=== PATIENT | female | born 1985 | race African-American/Black ===

== ENCOUNTER 2019-06-05 18:46 | Emergency (ER) | payer BC ==
[~2019-06-05] VITALS: Ht 154.9 cm; Wt 89.5 kg
[2019-06-05 19:43] VITALS: BP 131/75; TEMP 98.4
[2019-06-05 20:44] LABS: BASO # 0.1 (0.0-0.2); BASO % 0.9 % (0.0-2.0); EOS # 0.4 (0.0-0.7); EOS % 5.6 % (0-4.0); GRAN # 4.4 (1.4-6.5); GRAN % 56.7 % (42.2-75.2); HEMATOCRIT 41.1 % (37.0-47.0); HEMOGLOBIN 14.2 g/dl (12.5-16.0); LYMPH % 24.9 % (20.0-51.0); MEAN CELL VOLUME 82 fl (80.0-100.0); MEAN CORPUSCULAR HEMOGLOBIN 28 pg (27.0-31.0); MEAN CORPUSCULAR HGB CONC 35 g/dl (33.0-37.0); MEAN PLATELET VOLUME 9.8 fl (7.4-10.4); MONO # 0.9 (0.1-0.6); MONO % 11.5 % (1.7-9.3); PLATELET COUNT 291 K/mm3 (130-400); RED BLOOD COUNT 5.01 M/mm3 (4.10-5.30); REDCELL DISTRIBUTION WIDTH-CV 13.2 % (11.5-14.5)
[2019-06-05 21:03] LABS: COLLECTION METHOD CLEAN CATCH
[2019-06-05 21:18] LABS: MUCOUS Present /lpf; PH 6 (5-8); SQUAMOUS EPITHELIAL 0-2 /hpf; URINE APPEARANCE Hazy; URINE BACTERIA None Seen /hpf; URINE BILIRUBIN Negative (NEGATIVE); URINE BLOOD 3+ (NEGATIVE); URINE COLOR Yellow; URINE GLUCOSE Negative (NEGATIVE); URINE KETONE Negative (NEGATIVE); URINE LEUKOCYTE ESTERASE Negative (NEGATIVE); URINE NITRATE Negative (NEGATIVE); URINE PROTEIN(semi-quant) 1+ (NEGATIVE); URINE RBC >50 /hpf; URINE UROBILINOGEN Negative (NEGATIVE)
[2019-06-05 22:30] VITALS: PULSE 71
== END 2019-06-05 22:40 | disposition home or self-care (01) ==
LOC: COL.ER 18:46
PROVIDERS: Nurse Practitioner
DX: O46.91 Antepartum hemorrhage, unspecified, first trimester (principal); Z3A.10 10 weeks gestation of pregnancy

== ENCOUNTER → 2019-12-13 | Outpatient (CLI) | payer BC | LOC: ZCOL.LAB 08:00 | DX: Z20.828 Contact with and (suspected) exposure to other viral communicable diseases (principal) ==

== ENCOUNTER 2019-12-19 05:16 | Inpatient (IN) | payer BC ==
[2019-12-19] VITALS (19 sets, daily range): BP systolic 84–122; BP diastolic 7–84; PULSE 60–100; TEMP 97.8–98.4
[~2019-12-19] VITALS: Ht 154.9 cm; Wt 105.5 kg
--- NOTE | 2019-12-19 05:30 | NUR ---
0530- PT AMBULATORY TO THE UNIT WITH BY HER SIDE. ORIENTATED TO ROOM AND CHANGED INTO GOWN. REPORTS GFM, NO LOF, NO CTX, AND NO BLOOD. 0535- EFM AND TOCO ON AND TRACING. RN REMAINS AT BEDSIDE. EFM TRACING INTERMITTENTLY. 0540- EFM ADJUSTED AND TRACING NOW. VITALS TAKEN, IV STARTED, FLUIDS RUNNING, CONSENTS SIGNED. QUESTIONS ANSWERED. CALL LIGHT WITHIN REACH.
[2019-12-19 06:22] LABS: BASO % 0.6 % (0.0-2.0); EOS # 0.2 (0.0-0.7); EOS % 2.2 % (0-4.0); GRAN # 4.6 (1.4-6.5); GRAN % 66.8 % (42.2-75.2); HEMATOCRIT 37.4 % (37.0-47.0); HEMOGLOBIN 12.5 g/dl (12.5-16.0); LYMPH # 1.5 (1.2-3.4); LYMPH % 21.2 % (20.0-51.0); MEAN CELL VOLUME 77 fl (80.0-100.0); MEAN CORPUSCULAR HEMOGLOBIN 26 pg (27.0-31.0); MEAN CORPUSCULAR HGB CONC 33 g/dl (33.0-37.0); MEAN PLATELET VOLUME 10.7 fl (7.4-10.4); MONO # 0.6 (0.1-0.6); MONO % 8.8 % (1.7-9.3); PLATELET COUNT 235 K/mm3 (130-400); RED BLOOD COUNT 4.89 M/mm3 (4.10-5.30); REDCELL DISTRIBUTION WIDTH-CV 15.7 % (11.5-14.5)
[2019-12-19] MEDS ORDERED: PRENATAL (06:24)
[2019-12-20] VITALS: BP 110/60; PULSE 83; TEMP 98
[2019-12-20 04:30] VITALS: BP 105/67; PULSE 87; TEMP 98.2
[2019-12-20 06:53] LABS: HEMOGLOBIN 11.3 g/dl (12.5-16.0)
[2019-12-20 06:54] LABS: HEMATOCRIT 34.6 % (37.0-47.0)
--- NOTE | 2019-12-20 07:06 | NUR ---
Patient sleeping. Report received from off going RN, Summer Cortes
[2019-12-20] MEDS ORDERED: PERCOCET 325 MG1 TA2 PO (08:23)
[2019-12-20] MEDS ORDERED: IBU600 MG PO (08:23)
[2019-12-20 09:31] VITALS: BP 107/44; PULSE 92; TEMP 97.5
[2019-12-20 16:10] VITALS: BP 113/71; PULSE 75; TEMP 98.5
[2019-12-20 20:00] VITALS: BP 124/67; PULSE 92; TEMP 98.1
[2019-12-21 08:00] VITALS: BP 112/76; PULSE 91; TEMP 98.1
--- NOTE | 2019-12-21 11:25 | NUR ---
Patient given dc instructions. Denies questions. Escorted off unit ambulatory by Kunal Baires.
== END 2019-12-21 11:25 | disposition home or self-care (01) | DRG 788 ==
LOC: OB 05:16
PROVIDERS: ADMIT Obstetrics & Gynecology
PROC: 10D00Z1 Extraction of Products of Conception, Low, Open Approach (ICD-10-PCS; principal; 2019-12-19)
DX: O32.2XX0 Maternal care for transverse and oblique lie, not applicable or unspecified (principal); Z37.0 Single live birth; Z3A.39 39 weeks gestation of pregnancy; O34.13 Maternal care for benign tumor of corpus uteri, third trimester; D35.2 Benign neoplasm of pituitary gland; D57.3 Sickle-cell trait; O99.02 Anemia complicating childbirth; O99.214 Obesity complicating childbirth
CPT/HCPCS: J0690; J1885; J2370; J2405; J2590; J7120

== ENCOUNTER 2021-11-17 05:35 | Inpatient (IN) | payer BC ==
[~2021-11-17] VITALS: Ht 155 cm; Wt 101.5 kg
[2021-11-17] VITALS (18 sets, daily range): BP systolic 102–124; BP diastolic 57–86; PULSE 55–81; TEMP 97.8–98.7
[~2021-11-17 05:35] MED LIST: IBU600 MG PO; PERCOCET 325 MG1 TA2 PO; PRENATAL
--- NOTE | 2021-11-17 05:45 | NUR ---
Pt ambulatory to unit for scheduled section. Pt oriented to room, call light within reach, bed in low and locked position. Clean gown on. US and toco explained and applied for NST. 18G IV started in right wrist with 1 attempt. Admission labs obtained off IV start. Lactated ringers infusing to gravity. Vitals signs obtained. Consents reviewed and signed with patient and spouse, all questions answered.
--- NOTE | 2021-11-17 06:30 | NUR ---
PT REPORTS BLOOD GLUCOSE LEVEL:70 ON HOME MACHINE. WILL NOTIFY .
[2021-11-17 08:06] LABS: BASO # 0.1 K/mm3 (0.0-0.2); BASO % 0.8 % (0.0-2.0); EOS # 0.1 K/mm3 (0.0-0.7); EOS % 1.9 % (0.0-4.0); GRAN # 3.7 K/mm3 (1.4-6.5); GRAN % 58.7 % (42.2-75.2); HEMATOCRIT 37.2 % (37.0-47.0); HEMOGLOBIN 12.7 g/dl (12.5-16.0); LYMPH # 1.8 K/mm3 (1.2-3.4); LYMPH % 27.6 % (20.0-51.0); MEAN CELL VOLUME 77 fl (80.0-100.0); MEAN CORPUSCULAR HEMOGLOBIN 26 pg (27-31); MEAN CORPUSCULAR HGB CONC 34 g/dl (33.0-37.0); MEAN PLATELET VOLUME 11.7 fl (7.4-10.4); MONO # 0.7 K/mm3 (0.1-0.6); MONO % 10.7 % (1.7-9.3); PLATELET COUNT 222 K/mm3 (130-400); RED BLOOD COUNT 4.85 M/mm3 (4.10-5.30); REDCELL DISTRIBUTION WIDTH-CV 14.1 % (11.5-14.5)
--- NOTE | 2021-11-17 08:34 | NUR ---
0630 RECEIVED REPORT AND TOOK OVER CARE. IN ROOM TO D/C NST IT WAS COMPLETE. NST REACTIVE, MATERNAL VITALS ARE STABLE. DISCUSSED PLAN OF CARE FOR THE DAY. 0641 HUNG SECOND BAG OF LR AND SHAVED, CLEANED, AND PLACED SOCKS ON PT. WILL CONTINUE TO MONITOR.
--- NOTE | 2021-11-17 10:05 | NUR ---
Initial visit; Patient thanked [employer] for looking in on her and offering God's blessings and thanking her for choosing our hospital.
--- NOTE | 2021-11-17 15:10 | NUR ---
0700 PT REPORTED SHE CHECKED BLOOD SUGAR THIS MORNING BEFORE ARRIVAL. REPORTS BLOOD SUGAR WAS 70.
--- NOTE | 2021-11-17 15:12 | NUR ---
0600 MEDITECH DOWN AT THIS TIME. PT ARRIVED TO UNIT AT 0545 AND WAS ADMITTED TO ROOM. DOUG DALE RN, STARTED IV AND DISCUSSED POC AND HAD CONSENT FORMS SIGNED. PT CHANGED INTO GOWN AND IN BED. ONE BAG OF LR BOLUSED AT THIS TIME. 0630 THIS RN TOOK OVER CARE.
[2021-11-18 04:00] VITALS: BP 100/56; PULSE 67; TEMP 97.5
[2021-11-18 07:00] VITALS: BP 98/66; PULSE 75; TEMP 97.5
[2021-11-18 07:02] LABS: HEMOGLOBIN 11.4 g/dl (12.5-16.0)
[2021-11-18 07:14] LABS: HEMATOCRIT 33.7 % (37.0-47.0)
[2021-11-18] MEDS ORDERED: PERCOCET 325 MG1 TA2 PO (08:44)
[2021-11-18] MEDS ORDERED: IBU600 MG PO (08:44)
--- NOTE | 2021-11-18 09:33 | NUR ---
Initial visit attempt; Patient out of room, [employer] left card of congratulations and God's blessings for the of their son and information regarding the availability of [facility] at [facility].
[2021-11-18 16:00] VITALS: BP 113/69; PULSE 60; TEMP 97.8
[2021-11-18 19:15] VITALS: BP 119/69; PULSE 64; TEMP 98.1
[2021-11-19 07:23] VITALS: BP 122/60; PULSE 70; TEMP 97.7
== END 2021-11-19 11:39 | disposition home or self-care (01) | DRG 787 ==
LOC: OB 05:35
PROVIDERS: ADMIT Obstetrics & Gynecology
PROC: 10D00Z1 Extraction of Products of Conception, Low, Open Approach (ICD-10-PCS; principal; 2021-11-17)
DX: O34.211 Maternal care for low transverse scar from previous cesarean delivery (principal); O44.43 Low lying placenta NOS or without hemorrhage, third trimester; O24.420 Gestational diabetes mellitus in childbirth, diet controlled; Z3A.39 39 weeks gestation of pregnancy; Z37.0 Single live birth; O69.81X0 Labor and delivery complicated by cord around neck, without compression, not applicable or unspecified; O34.13 Maternal care for benign tumor of corpus uteri, third trimester; D25.9 Leiomyoma of uterus, unspecified; D57.3 Sickle-cell trait; O99.02 Anemia complicating childbirth; O32.1XX0 Maternal care for breech presentation, not applicable or unspecified; O99.214 Obesity complicating childbirth; Z86.16 Personal history of COVID-19; Z23 Encounter for immunization
CPT/HCPCS: J0690; J1885; J2370; J2405; J2590; J7120